=== PATIENT | male | born 1995 | race Caucasian/White ===

== ENCOUNTER 2017-02-28 11:00 | Emergency (ER) | payer BC, OTHER ==
[~2017-02-28] VITALS: Ht 188 cm; Wt 104.3 kg
--- NOTE | 2017-02-28 11:41 | ED Back Pain ---
General Chief Complaint: Back Problems Stated Complaint: LOWER BACK PAIN Nursing Triage Note: COMPLAINS OF LOW BACK PAIN STARTING TUESDAY AFTER PICKING UP SOME BUCKETS. Nursing Sepsis Screen: No Definite Risk Source of Information: Patient Exam Limitations: No Limitations History of Present Illness Time Seen by Provider: 11:39 Initial Comments 21-year-old male patient presents to the emergency department complains of low back pain beginning Tuesday. States he cannot recall a specific injury. States over the last 1.5 to 2 weeks he has been helping his girlfriend move, having to do heavy lifting at work, working out a "descent amount." Denies bowel incontinence, bladder incontinence, or numbness of the genitals. Location: Paraspinous Muscles Timing/Duration: 1 Week, Constant Pain/Injury Location: Back Radiation: Other (denies radiation.) Method of Injury: Unknown Modifying Factors: Worse With Movement Associated Symptoms: muscle spasms, No fever, No weakness, No numbness in legs/ feet, No tingling in legs/feet, No sensory/motor loss, lower back pain, No loss of bladder control, No loss of bowel control Allergies and Home Medications Allergies Coded Allergies: No Known Drug Allergies (Unverified , 02/28/17) Home Medications Cyclobenzaprine HCl 10 Mg Tablet, 10 MG PO Q8H PRN for SPASMS, #14 Ref 0 Prescribed by: OLE MIRELES on 02/28/17 1206 Prednisone 20 Mg Tab, 40 MG PO DAILY, #10 Ref 0 Prescribed by: OLE MIRELES on 02/28/17 1206 Tramadol HCl 50 Mg Tablet, 50 MG PO Q4H PRN for PAIN-MILD TO MODERATE, #10 Ref 0 Prescribed by: OLE MIRELES on 02/28/17 1206 Constitutional: no symptoms reported Respiratory: no symptoms reported Cardiovascular: no symptoms reported Gastrointestinal: No abdominal pain, No constipation, No diarrhea, No loss of appetite, No nausea, No vomiting Genitourinary: No decreased output, No dysuria, No frequency, No hematuria, No pain Musculoskeletal: see HPI, back pain, No joint pain, muscle pain, muscle stiffness, No neck pain Skin: no symptoms reported Psychiatric/Neurological: Denies Numbness, Denies Paresthesia, Denies Tingling , Denies Weakness All Other Systems Reviewed Negative Unless Noted: Yes (Negative excepted noted.) Past [id number] Hx Patient Social History Alcohol Use: Occasionally Uses Recreational Drug Use: No Smoking Status: Never a Smoker Recent Foreign Travel: No Contact w/Someone Who Travel: No Recent Infectious Disease Expo: No Surgeries HX Surgeries: Yes Surgeries: Adenoidectomy, Tonsillectomy Respiratory Hx Respiratory Disorders: No Cardiovascular Hx Cardiac Disorders: No Neurological Hx Neurological Disorders: No Genitourinary Hx Genitourinary Disorders: No Gastrointestinal Hx Gastrointestinal Disorders: No Musculoskeletal Hx Musculoskeletal Disorders: No Endocrine Hx Endocrine Disorders: No HEENT HX ENT Disorders: No Reviewed Nursing Assessment Reviewed/Agree w Nursing PMH: Yes Family Medical History Significant Family History: No Pertinent Family Hx Physical Exam Vital Signs Vital Sign - Last 12Hours 02/28/17 11:15 Temp 98.0 Pulse 53 Resp 16 B/P (MAP) 141/70 Pulse Ox 98 Capillary Refill : Less Than 3 Seconds General Appearance: No Apparent Distress, WD/WN HEENT: PERRL/EOMI, Pharynx Normal Neck: Full Range of Motion, Normal Inspection, Non Tender, Supple Cardiovascular: Regular Rate, Rhythm, No Edema, No Murmur, Normal Peripheral Pulses Respiratory: Lungs Clear, Normal Breath Sounds, No Respiratory Distress Peripheral Pulses: 2+ Dorsalis Pedis (R), 2+ Left Dors-Pedis (L), 2+ Radial Pulses (R), 2+ Radial Pulses (L) Gastrointestinal: Non Tender, Soft, No Distended Back: Normal Inspection, No Vertebral Tenderness, No Decreased Range of Motion , Muscle Spasm (muscle spasm of the low back with mild tenderness to palpation) Extremity: Normal Capillary Refill, Normal Inspection, Normal Range of Motion, Non Tender, No Pedal Edema Neurologic/Psychiatric: Alert, Oriented x3, No Motor/Sensory Deficits, Normal Mood/Affect Skin: Normal Color, Warm/Dry Progress/Results/Core Measures Results/Orders My Orders Orders - OLE MIRELES Hydrocodone/Apap 5/325 Tablet (Lortab 5 (02/28/17 11:58) Vital Signs/I&O Vital Sign - Last 12Hours 02/28/17 11:15 Temp 98.0 Pulse 53 Resp 16 B/P (MAP) 141/70 Pulse Ox 98 Blood Pressure Mean: 93 Departure Communication Progress Notes Patient seen and evaluated. Plan for discharge to home. Impression Impression: Primary Impression: Strain of muscle, fascia and tendon of lower back, initial encounter Disposition: HOME, SELF-CARE Condition: Improved Departure-Patient Inst. Decision time for Depature: 12:03 Referrals: [facility] (PCP) Primary Care Physician Patient Instructions: Lumbar Muscle Strain (DC) Add. Discharge Instructions: All discharge instructions reviewed with patient and/or family. Voiced understanding. Medications as instructed. Tylenol extra strength over-the- counter as directed for pain. Ibuprofen 800 mg by mouth every 8 hours as needed for pain. Heating pads or packs as needed for pain. Avoid heavy lifting for 2-3 days, then increase activity as tolerated. Follow-up with your family practitioner for recheck if no improvement in symptoms. Return to the emergency department for worsened pain, fever, numbness, weakness, bowel incontinence, bladder incontinence, or any other concerns. Scripts Cyclobenzaprine HCl (Cyclobenzaprine HCl) 10 Mg Tablet 10 MG PO Q8H Y for SPASMS, #14 TAB 0 Refills Prov: OLE MIRELES 02/28/17 Tramadol HCl (Tramadol HCl) 50 Mg Tablet 50 MG PO Q4H Y for PAIN-MILD TO MODERATE, #10 TAB 0 Refills Prov: OLE MIRELES 02/28/17 Prednisone (Prednisone) 20 Mg Tab 40 MG PO DAILY, #10 TAB 0 Refills Prov: OLE MIRELES 02/28/17 Work/School Note: Work Release Form Date Seen in the Emergency Department: February 28, 2017 Return to Work: March 01, 2017 OLE MIRELES February 28, 2017 11:41
[2017-02-28] MEDS ORDERED: HYDROcodone/APAP 5 MG/325 MG (LORTAB) TAB PO STA (11:58)
[2017-02-28] MEDS ORDERED: CYCL10TA9 PO (12:06)
[2017-02-28] MEDS ORDERED: TRAM50TA2 PO (12:06)
[2017-02-28] MEDS ORDERED: PRD20T PO (12:06)
[2017-02-28 12:31] VITALS: BP 141/70
== END 2017-02-28 12:31 | disposition home or self-care (01) ==
LOC: ER 11:03
DX: S39.012A Strain of muscle, fascia and tendon of lower back, initial encounter (principal); X50.0XXA Overexertion from strenuous movement or load, initial encounter; Y99.8 Other external cause status
CPT/HCPCS: 99281